=== PATIENT | female | born 1995 | race American Indian/Alaskan Native ===

== ENCOUNTER 2016-08-10 11:36 | Outpatient (CLI) | payer MEDICAID ==
[2016-08-10 12:24] VITALS: BP 119/71
== END 2016-08-10 12:39 | disposition home or self-care (01) ==
LOC: TRG 11:36
PROVIDERS: ATTEND Obstetrics & Gynecology
DX: O47.1 False labor at or after 37 completed weeks of gestation (principal); Z3A.39 39 weeks gestation of pregnancy
CPT/HCPCS: 59025

== ENCOUNTER 2016-08-12 13:49 | Outpatient (CLI) | payer MEDICAID ==
[2016-08-12 14:39] VITALS: BP 120/70
[2016-08-12 15:49] LABS: Urine Drugs of Abuse Note Disclamer
--- NOTE | 2016-08-13 07:25 | Ultrasound Report ---
ULTRASOUND OB LIMITED History: well being Technique: Transabdominal ultrasound with Doppler interrogation. Gestation: Single Position: cephalic Amniotic Fluid: Normal ADALI = 12.2 cm Heart Rate: 136 BPM
--- NOTE | 2016-08-13 07:26 | Ultrasound Report ---
ULTRASOUND BIOPHYSICAL PROFILE: History: well being Technique: Transabdominal ultrasound with Doppler interrogation. 2 - breathing movements 2 - movements 2 - posture and tone 2 - Qualitative amniotic fluid volume 8 - TOTAL SCORE OF POSSIBLE 8 Heart Rate (bpm) 129
== END 2016-08-12 17:10 | disposition home or self-care (01) ==
LOC: TRG 13:49
PROVIDERS: ATTEND Obstetrics & Gynecology
DX: O47.1 False labor at or after 37 completed weeks of gestation (principal); Z3A.39 39 weeks gestation of pregnancy
CPT/HCPCS: 59025; 76815; 76819; 80307